=== PATIENT | male | born 1950 | race Caucasian/White ===

== ENCOUNTER 2018-01-29 13:31 | Outpatient (CLI) | payer OTHER ==
--- NOTE | 2018-01-29 15:34 | RAD ---
LEFT KNEE TWO VIEWS: History: Osteoarthritis. Comparison: None. FINDINGS: There is mild degenerative change of the patellofemoral compartment. Medial and lateral compartment j oint space heights are preserved. No fracture or joint effusion. No malalignment. IMPRESSION: Minimal degenerative change of the patellofemoral compartment. POS: [facility]
--- NOTE | 2018-01-29 15:35 | RAD ---
TWO VIEWS RIGHT KNEE: History: Osteoarthritis of the knee. Comparison: None. FINDINGS: Minimal degenerative change of the patellofemoral compartment. Medial and lateral compartment joint s paces preserved. No fractures. No significant joint effusion. No malalignment. IMPRESSION: Minimal degenerative change of the patellofemoral compartment. POS: [facility]
--- NOTE | 2018-01-29 15:36 | RAD ---
CHEST TWO VIEWS: History: COPD. Comparison: None. FINDINGS: Normal cardiac silhouette. The pulmonary vessels and hilum are normal. Costophrenic angles are clear. No masses or consolidation. No pneumothorax or osseous abnormalities. IMPRESSION: No acute cardiopulmonary process. POS: [facility]
== END 2018-01-29 13:32 | disposition home or self-care (01) ==
LOC: BICRAD 13:31
PROVIDERS: ATTEND Internal Medicine Rheumatology
DX: J44.9 Chronic obstructive pulmonary disease, unspecified (principal); M17.0 Bilateral primary osteoarthritis of knee
CPT/HCPCS: 71046

== ENCOUNTER 2019-12-18 07:48 | Outpatient (CLI) | payer MEDICARE, OTHER ==
[2019-12-18 19:00] LABS: SARS-CoV-2 MS2 Positive; SARS-CoV-2 N Gene Negative; SARS-CoV-2 S Gene Negative; SARS-CoV-2 by NAA Not Detected (NotDetected); SARS-CoV-2 orf1ab Negative
== END 2019-12-18 07:49 | disposition home or self-care (01) ==
LOC: LABBT 07:48
PROVIDERS: ATTEND Internal Medicine Gastroenterology
DX: Z20.828 Contact with and (suspected) exposure to other viral communicable diseases (principal)
CPT/HCPCS: 87635; U0003

== ENCOUNTER 2019-12-23 07:42 | Day surgery (SDC) | payer MEDICARE ==
[2019-12-20 10:44] VITALS: BMI 37.8
[2019-12-23] MEDS ORDERED: Midazolam HCl 2 mg/2 ml Vial ONE (10:22)
--- NOTE | 2019-12-23 12:18 | OP ---
DATE OF PROCEDURE: 12/23/2019 PROCEDURES PERFORMED: Colonoscopy with snare polypectomy. PREOPERATIVE DIAGNOSIS: Positive Cologuard test. DESCRIPTION OF PROCEDURE: Informed consent was obtained from the patient. He was sedated with total intravenous anesthesia. The rectal exam was performed and was normal. The preparation quality was good. The colonoscope was advanced to the cecum, where the ileocecal valve and appendiceal orifice were clearly identified. There was severe diverticulosis throughout the colon. I removed 3 polyps from the cecum, 2 of these measured 4 to 5 mm and removed by cold snare polypectomy. One was 6 mm and removed by hot snare. I removed 5 polyps in the ascending colon. One was a 1.1 cm polyp with a mucus cap and was removed in 2 pieces. Another 7 mm polyp was removed by hot snare. Three other polyps in the ascending were removed by cold snare. I removed 4 polyps in the transverse colon, 2 were removed by hot snare measuring in the 7 to 8 mm range and 2 were removed by cold snare measuring 5 to 6 mm. I removed a 5 mm polyp from the descending colon by cold snare. I removed a 1.1 cm broad-based polyp in the sigmoid colon again with a mucus cap. This was removed by hot snare and a hemoclip was placed over the polypectomy site. I removed 2 polyps measuring 5 to 6 mm from the rectum by cold snare. Retroflexed views in the rectum were unremarkable. One of the polyps did have a prominent submucosal vein running vertically up into the mid rectum. ASSESSMENT: 1. Cecum polyps x3. 2. Ascending polyps x5. 3. Transverse polyps x4. 4. 5 mm descending polyp. 5. 1.1 cm sigmoid colon polyp. 6. Two rectal polyps. 7. Diverticulosis throughout the colon. RECOMMENDATIONS: 1. Await histopathology. 2. Repeat colonoscopy in one year. Job ID: [id number]
[2019-12-23] MEDS ORDERED: PROPOFOL 200 MG/20 ML VIAL ONE (13:30)
== END 2019-12-23 12:54 | disposition home or self-care (01) ==
LOC: SDC 07:42
PROVIDERS: ATTEND Internal Medicine Gastroenterology
PROC: 0DBK8ZX Excision of Ascending Colon, Via Natural or Artificial Opening Endoscopic, Diagnostic (ICD-10-PCS; principal; 2019-12-23)
PROC: 0DBL8ZX Excision of Transverse Colon, Via Natural or Artificial Opening Endoscopic, Diagnostic (ICD-10-PCS; 2019-12-23)
PROC: 0DBN8ZX Excision of Sigmoid Colon, Via Natural or Artificial Opening Endoscopic, Diagnostic (ICD-10-PCS; 2019-12-23)
PROC: 0DBP8ZX Excision of Rectum, Via Natural or Artificial Opening Endoscopic, Diagnostic (ICD-10-PCS; 2019-12-23)
PROC: 0DBM8ZX Excision of Descending Colon, Via Natural or Artificial Opening Endoscopic, Diagnostic (ICD-10-PCS; 2019-12-23)
PROC: 0DBH8ZX Excision of Cecum, Via Natural or Artificial Opening Endoscopic, Diagnostic (ICD-10-PCS; 2019-12-23)
DX: D12.0 Benign neoplasm of cecum (principal); D12.2 Benign neoplasm of ascending colon; D12.3 Benign neoplasm of transverse colon; D12.4 Benign neoplasm of descending colon; D12.5 Benign neoplasm of sigmoid colon; K62.1 Rectal polyp; K57.30 Diverticulosis of large intestine without perforation or abscess without bleeding; I10 Essential (primary) hypertension; J44.9 Chronic obstructive pulmonary disease, unspecified; G47.30 Sleep apnea, unspecified; R73.03 Prediabetes; K21.9 Gastro-esophageal reflux disease without esophagitis; Z87.891 Personal history of nicotine dependence; Z79.899 Other long term (current) drug therapy; Z88.1 Allergy status to other antibiotic agents
CPT/HCPCS: 88305; J2250; J2704

== ENCOUNTER 2021-01-18 14:40 | Outpatient (CLI) | payer MEDICARE ==
[2021-01-19 13:30] LABS: SARS-CoV-2 PCR by NAA Not Detected (NotDetected)
== END 2021-01-18 14:41 | disposition home or self-care (01) ==
LOC: LABBT 14:40
PROVIDERS: ATTEND Internal Medicine Gastroenterology
DX: Z01.812 Encounter for preprocedural laboratory examination (principal); Z12.11 Encounter for screening for malignant neoplasm of colon; Z20.822 Contact with and (suspected) exposure to COVID-19; Z86.010 Personal history of colon polyps
CPT/HCPCS: U0003; U0005

== ENCOUNTER 2021-01-21 06:57 | Day surgery (SDC) | payer MEDICARE ==
[2021-01-20 10:10] VITALS: BMI 43.6
== END 2021-01-21 09:58 | disposition home or self-care (01) ==
LOC: SDC 06:57
PROVIDERS: ATTEND Internal Medicine Gastroenterology
PROC: 0DBN8ZX Excision of Sigmoid Colon, Via Natural or Artificial Opening Endoscopic, Diagnostic (ICD-10-PCS; principal; 2021-01-21)
DX: Z12.11 Encounter for screening for malignant neoplasm of colon (principal); K63.5 Polyp of colon; K57.30 Diverticulosis of large intestine without perforation or abscess without bleeding; J44.9 Chronic obstructive pulmonary disease, unspecified; E11.9 Type 2 diabetes mellitus without complications; K21.9 Gastro-esophageal reflux disease without esophagitis; I10 Essential (primary) hypertension; G47.30 Sleep apnea, unspecified; Z86.010 Personal history of colon polyps; Z87.891 Personal history of nicotine dependence; Z79.899 Other long term (current) drug therapy; Z88.8 Allergy status to other drugs, medicaments and biological substances
CPT/HCPCS: 88305